=== PATIENT | female | born 1960 | race Caucasian/White ===

== ENCOUNTER → 2016-07-02 | Outpatient (POV) | LOC: OUTPT 00:01 | PROVIDERS: ATTEND Otolaryngology | DX: H91.90 Unspecified hearing loss, unspecified ear (principal) | CPT/HCPCS: 92557; 92567 ==

== ENCOUNTER 2016-09-04 12:50 | Outpatient (CLI) ==
[2016-09-04 13:22] LABS: BASOPHILS # (AUTO) 0.1 K/uL (0-0.2); BASOPHILS % (AUTO) 1.2 % (0.0-3.0); EOSINOPHILS # (AUTO) 0.3 K/ul (0.0-0.7); EOSINOPHILS % (AUTO) 5.1 % (0.0-7.0); HEMATOCRIT 40.2 % (37.0-47.0); HEMOGLOBIN 14.4 g/dl (12.0-16.0); LYMPHOCYTES % (AUTO) 20.4 (10.0-50.0); MEAN CORPUSCULAR HEMOGLOBIN 33.2 pg (27.0-31.0); MEAN CORPUSCULAR HGB CONC 35.8 (31.8-35.4); MEAN CORPUSCULAR VOLUME 92.6 fl (81.0-99.0); MONOCYTES # (AUTO) 0.4 K/uL (0.4-2.0); MONOCYTES % (AUTO) 8.3 (0-10); NEUTROPHILS # (AUTO) 3.3 K/ul (2.0-6.9); PLATELET COUNT 215 10^3/uL (140-440); RED BLOOD COUNT 4.34 10^6/ul (4.20-5.40); WHITE BLOOD COUNT 5.09 K/ul (4.6-10.2)
[2016-09-04 14:00] LABS: ALBUMIN 3.9 g/dL (3.4-5.0); ALBUMIN/GLOBULIN RATIO 1.3; ANION GAP 13.2; BILIRUBIN,TOTAL 0.74 mg/dL (0.00-1.20); BUN/CREATININE RATIO 13.33; CALCIUM 9.4 mg/dL (8.2-10.2); CHOL/HDL RATIO 1.8 (4.5-5.5); CREATININE 0.75 mg/dL (0.60-1.30); POTASSIUM 4.2 mmol/L (3.5-5.10); TOTAL PROTEIN 6.9 g/dL (6.4-8.2)
== END 2016-09-04 12:51 | disposition home or self-care (01) ==
LOC: LAB 12:50
PROVIDERS: ATTEND Nurse Practitioner Family
DX: J44.9 Chronic obstructive pulmonary disease, unspecified (principal); F32.9 Major depressive disorder, single episode, unspecified; I10 Essential (primary) hypertension
CPT/HCPCS: 36415; 80053; 80061; 84439; 84443; 85025

== ENCOUNTER 2017-09-01 06:58 | Outpatient (CLI) | END 2017-09-01 06:59 | disposition home or self-care (01) | LOC: LAB 06:58 | PROVIDERS: ATTEND Nurse Practitioner Family | DX: F32.9 Major depressive disorder, single episode, unspecified (principal); I10 Essential (primary) hypertension | CPT/HCPCS: 36415; 80053; 80061; 85025 ==

== ENCOUNTER 2017-09-14 13:34 | Outpatient (CLI) | END 2017-09-14 13:35 | disposition home or self-care (01) | LOC: RAD 13:34 | PROVIDERS: ATTEND Nurse Practitioner Family | DX: Z12.31 Encounter for screening mammogram for malignant neoplasm of breast (principal) | CPT/HCPCS: 77067 ==

== ENCOUNTER 2017-11-24 07:00 | Outpatient (CLI) | END 2017-11-24 07:01 | disposition home or self-care (01) | LOC: LAB 07:00 | PROVIDERS: ATTEND Nurse Practitioner Family | DX: F32.9 Major depressive disorder, single episode, unspecified (principal); I10 Essential (primary) hypertension | CPT/HCPCS: 36415; 85025 ==

== ENCOUNTER 2017-11-25 09:57 | Outpatient (CLI) | END 2017-11-25 09:58 | disposition home or self-care (01) | LOC: FCC-LAB 09:57 | PROVIDERS: ATTEND Nurse Practitioner Family | DX: E78.00 Pure hypercholesterolemia, unspecified (principal); I10 Essential (primary) hypertension | CPT/HCPCS: 36415; 80053; 80061 ==

== ENCOUNTER 2017-11-30 13:18 | Outpatient (CLI) | END 2017-11-30 13:19 | disposition home or self-care (01) | LOC: LAB 13:18 | PROVIDERS: ATTEND Nurse Practitioner Family | DX: E87.1 Hypo-osmolality and hyponatremia (principal); I10 Essential (primary) hypertension | CPT/HCPCS: 36415; 80048 ==

== ENCOUNTER 2018-08-11 07:10 | Outpatient (CLI) | END 2018-08-11 07:11 | disposition home or self-care (01) | LOC: LAB 07:10 | PROVIDERS: ATTEND Nurse Practitioner Family | DX: I10 Essential (primary) hypertension (principal); F32.9 Major depressive disorder, single episode, unspecified; E78.00 Pure hypercholesterolemia, unspecified | CPT/HCPCS: 36415; 80053; 80061; 84443; 85025 ==

== ENCOUNTER 2019-02-23 07:08 | Outpatient (CLI) ==
[2019-01-19 13:42] VITALS: BMI 20.9
== END 2019-02-23 07:09 | disposition home or self-care (01) ==
LOC: LAB 07:08
PROVIDERS: ATTEND Nurse Practitioner Family
DX: I10 Essential (primary) hypertension (principal); E78.00 Pure hypercholesterolemia, unspecified
CPT/HCPCS: 36415; 80053; 80061; 85025

== ENCOUNTER 2019-03-08 13:16 | Outpatient (CLI) ==
[2019-01-19 13:42] VITALS: BMI 20.9
== END 2019-03-08 13:17 | disposition home or self-care (01) ==
LOC: RAD 13:16
PROVIDERS: ATTEND Nurse Practitioner Family
DX: Z12.31 Encounter for screening mammogram for malignant neoplasm of breast (principal)